=== PATIENT | female | born 1955 | race Caucasian/White ===

== ENCOUNTER 2018-02-22 10:49 | Emergency (ER) | payer BC ==
--- NOTE | 2018-02-22 12:27 | RAD ---
LEFT FOOT 3 VIEWS: Date: 02/22/18 HISTORY: Foot pain. COMPARISON: 04/06/17. FINDINGS: Enthesophytes from the posterior and plantar calcaneus are again seen and are unchanged. Degenerative changes in the intertarsal joints and at the tarsometatarsal joints again seen and appear stable. Me tatarsals and phalanges appear intact. MTP and IP joints appear unremarkable. IMPRESSION: There are degenerative changes which appear stable from prior exam as described. No acute finding or interval change apparent. POS: DANIAL
[2018-02-22] MEDS ORDERED: HYDROcodone/Acetaminophen 10/325 mg Tablet ONE (12:33)
== END 2018-02-22 13:24 | disposition home or self-care (01) ==
LOC: ERS 10:49
DX: S90.112A Contusion of left great toe without damage to nail, initial encounter (principal); B02.9 Zoster without complications; E03.9 Hypothyroidism, unspecified; F41.9 Anxiety disorder, unspecified; Z79.899 Other long term (current) drug therapy; X58.XXXA Exposure to other specified factors, initial encounter